=== PATIENT | male | born 1960 | race Caucasian/White ===

== ENCOUNTER 2021-01-28 15:00 | Inpatient (IN) | payer MEDICAID ==
[~2021-01-28] VITALS: Ht 188 cm; Wt 155.8 kg
[~2021-01-28 15:00] MED LIST: GLIP10TA9; PLAVIX; VICODIN; [UNRECOGNIZED DRUG - CODE]; [UNRECOGNIZED DRUG - CODE]
[2021-01-28] MEDS ORDERED: SODIUM CHLORIDE 0.9% 1,000 ML IVB ONE (16:00)
[2021-01-28 16:06] LABS: Urine Bacteria NONE SEEN /hpf (None Seen); Urine Blood Negative /uL (Negative); Urine Specific Gravity 1.019 (1.001-1.035); Urine WBC <1 /hpf (0 - 3)
[2021-01-28] MEDS ORDERED: ASPirin 81 mg TAB PO ONE (16:15)
[2021-01-28 16:22] LABS: Basophils # (auto) 0.1 10 ^3/uL (0-0.2); Eosinophils # (auto) 0 10 ^3/uL (0-0.8); Hemoglobin 10.2 g/dL (13.5-17.5); Monocytes # (auto) 0.6 10 ^3/uL (0-1.3)
[2021-01-28 16:23] LABS: Basophils % (auto) 0.8 % (0.0-2.0); Hematocrit 32.9 % (41.0-53.0); Lymphocytes # (auto) 0.8 10 ^3/uL (0.4-5.4); Lymphocytes % (auto) 7.3 % (10.0-50.0); Mean Corpuscular Hemoglobin 21.5 pg (28.0-32.0); Mean Corpuscular Hgb Conc. 30.9 g/dL (32.0-36.0); Mean Corpuscular Volume 69.4 fL (80.0-100.0); Monocytes % (auto) 5.4 % (0.0-12.0); Neutrophils # (auto) 10.1 10 ^3/uL (1.6-8.6); Neutrophils % (auto) 86.5 % (37.0-80.0); Platelet Count (auto) 430 10^3/uL (140-450); Red Blood Cells 4.74 10^6/uL (4.5-5.90); Red Cell Distribution Width 19.5 % (11.8-14.3); White Blood Cell 11.6 10^3/uL (4.4-10.8)
[2021-01-28] MEDS ORDERED: MORPHINE SULF INJ 2 MG/ML SYRINGE 1ML IV ONE (16:30)
[2021-01-28] MEDS ORDERED: ONDANSETRON HCL 4 MG/2 ML VIAL IV ONE (16:30)
[2021-01-28 16:36] LABS: Albumin 3.1 g/dL (3.4-5.0); Calcium 9.1 mg/dL (8.5-10.1); Magnesium 2.2 mg/dL (1.6-2.6); Potassium 4.6 mmol/L (3.5-5.1)
[2021-01-28 16:39] LABS: BUN/Creatinine Ratio 21.8; Bilirubin, Total 0.3 mg/dL (0.2-1.0); Total Protein 7.2 g/dL (6.4-8.2)
[2021-01-28 17:18] LABS: INR 1.08 (0.9-1.15)
[2021-01-28] MEDS ORDERED: InsuLIN REG 1unit/0.01ml Soln (100units/ml) SC ONE (17:30)
[2021-01-28] MEDS ORDERED: MORPHINE SULF INJ 2 MG/ML SYRINGE 1ML IV PRN (18:00)
[2021-01-28] MEDS ORDERED: ONDANSETRON HCL 4 MG/2 ML VIAL IV PRN (18:00)
[2021-01-28] MEDS ORDERED: ACETAMINOPHEN 325 MG TAB PO PRN (18:00)
[2021-01-28] MEDS ORDERED: DEXTROSE (50%) 50ML SYRG IV PRN (18:00)
[2021-01-28] MEDS ORDERED: NITROGLYCERIN 0.4 MG SL TAB SL PRN (18:00)
[2021-01-28 19:09] LABS: Alcohol, Urine < 3.0 mg/dL (0-10); Barbiturate Scree,Urine NEGATIVE (NEGATIVE); Benzodiazephine Screen, Urine NEGATIVE (NEGATIVE); Cannabinoid Screen, Urine POSITIVE (NEGATIVE); Cocaine Screen, Urine NEGATIVE (NEGATIVE); Opiate Scree,Urine NEGATIVE (NEGATIVE); Phencyclidine Screen, Urine NEGATIVE (NEGATIVE)
[2021-01-28 19:16] LABS: Amphetamine Screen, Urine NEGATIVE (NEGATIVE)
[2021-01-28 19:34] LABS: Cholesterol 136 mg/dL (< 200)
[2021-01-28] MEDS: ACCU-CHEK COMFORT CURVE STRIP VI SCH (19:35)
[2021-01-28 19:37] LABS: HDL Cholesterol 53 mg/dL (40-59); LDL Cholesterol 68 mg/dL (< 100); Triglycerides 96 mg/dL (< 150)
[2021-01-28] MEDS: InsuLIN REG 1unit/0.01ml Soln (100units/ml) SC SCH (20:02)
[2021-01-28] MEDS: HYDROcodone-ACET 5/325MG TAB PO PRN (21:52)
[2021-01-28 22:00] VITALS: BP 119/59
[2021-01-28] MEDS: ATORVASTATIN 20 MG TAB PO SCH (22:06)
[2021-01-28] MEDS: INSULIN LANTUS (GLARGINE) 1 /0.01ml (100units/ml) SC SCH (22:06)
[2021-01-28] MEDS ORDERED: TEMAZEPAM 15 MG CAP PO ONE (22:45)
[2021-01-28 23:03] VITALS: BP 119/59
[2021-01-28] MEDS ORDERED: ATOR10TA52 PO (23:54)
[2021-01-28] MEDS ORDERED: TAM04C PO (23:54)
[2021-01-28] MEDS ORDERED: ZOLP10TA6 PO (23:54)
[2021-01-28] MEDS ORDERED: APIX2.5T PO (23:54)
[2021-01-28] MEDS ORDERED: POTA10TA51 PO (23:54)
[2021-01-28] MEDS ORDERED: FURO20TA3 PO (23:54)
[2021-01-29] MEDS: ACCU-CHEK COMFORT CURVE STRIP VI SCH ×6 (00:02→20:57)
[2021-01-29] MEDS: InsuLIN REG 1unit/0.01ml Soln (100units/ml) SC SCH ×6 (00:04→20:59)
[2021-01-29 00:38] VITALS: BP 119/59
[2021-01-29] MEDS ORDERED: PNEUMOCOCCAL VACC POLYS 25 MCG/0.5 ML VIAL IM ONE (01:00)
[2021-01-29] MEDS: MORPHINE SULF INJ 2 MG/ML SYRINGE 1ML IV PRN ×3 (02:53→16:41)
[2021-01-29 05:00] VITALS: BP 123/60
[2021-01-29 08:20] LABS: Basophils # (auto) 0.2 10 ^3/uL (0-0.2); Eosinophils # (auto) 0.2 10 ^3/uL (0-0.8); Hemoglobin 10.2 g/dL (13.5-17.5); Lymphocytes # (auto) 3.5 10 ^3/uL (0.4-5.4); Mean Corpuscular Hgb Conc. 30.8 g/dL (32.0-36.0); Monocytes # (auto) 1.3 10 ^3/uL (0-1.3); Monocytes % (auto) 8.6 % (0.0-12.0)
[2021-01-29 08:22] LABS: Basophils % (auto) 1.1 % (0.0-2.0); Eosinophils % (auto) 1.2 % (0.0-7.0); Hematocrit 33.1 % (41.0-53.0); Lymphocytes % (auto) 24.1 % (10.0-50.0); Mean Corpuscular Hemoglobin 21.2 pg (28.0-32.0); Mean Corpuscular Volume 68.7 fL (80.0-100.0); Neutrophils # (auto) 9.6 10 ^3/uL (1.6-8.6); Nucleated Red Blood Cells % 0.1 %; Platelet Count (auto) 434 10^3/uL (140-450); Red Blood Cells 4.82 10^6/uL (4.5-5.90); Red Cell Distribution Width 19.9 % (11.8-14.3); White Blood Cell 14.7 10^3/uL (4.4-10.8)
[2021-01-29 08:24] VITALS: BP 134/74
[2021-01-29 08:39] LABS: Calcium 8.8 mg/dL (8.5-10.1)
[2021-01-29] MEDS: ADENOSINE 135 MG in GIVE UN-DILUTED 0 ML IV STA (08:41)
[2021-01-29] MEDS ORDERED: ENOXAPARIN SOD 40 MG/0.4 ML SYRINGE SC SCH (10:00)
[2021-01-29] MEDS ORDERED: ASPirin 81 mg TAB PO SCH (10:00)
[2021-01-29] MEDS: levoFLOXacin 500MG 100 ML IV SCH (10:44)
[2021-01-29] MEDS: FAMOTIDINE 20 MG TAB PO SCH (10:44)
[2021-01-29] MEDS: INSULIN LANTUS (GLARGINE) 1 /0.01ml (100units/ml) SC SCH ×2 (10:44→20:58)
[2021-01-29 12:16] VITALS: BP 132/66
[2021-01-29 13:00] LABS: BUN/Creatinine Ratio 26.5
[2021-01-29] MEDS: HYDROcodone-ACET 5/325MG TAB PO PRN ×2 (14:24→20:56)
[2021-01-29 16:38] VITALS: BP 129/67
[2021-01-29] MEDS: ATORVASTATIN 20 MG TAB PO SCH (20:57)
[2021-01-29 22:00] VITALS: BP 137/64
[2021-01-29] MEDS ORDERED: APIXABAN 5 MG TAB PO SCH (22:00)
[2021-01-29] MEDS ORDERED: ZOLPIDEM TARTRATE 5 MG TAB PO PRN (22:15)
[2021-01-29] MEDS: ZOLPIDEM TARTRATE 5 MG TAB PO PRN (22:51)
[2021-01-30] MEDS: MORPHINE SULF INJ 2 MG/ML SYRINGE 1ML IV PRN ×3 (00:06→20:00)
[2021-01-30] MEDS: ACCU-CHEK COMFORT CURVE STRIP VI SCH ×7 (00:15→23:39)
[2021-01-30] MEDS: InsuLIN REG 1unit/0.01ml Soln (100units/ml) SC SCH ×7 (00:17→23:38)
[2021-01-30 05:00] VITALS: BP 133/67
[2021-01-30 07:23] LABS: Basophils # (auto) 0.1 10 ^3/uL (0-0.2); Basophils % (auto) 0.7 % (0.0-2.0); Eosinophils # (auto) 0.2 10 ^3/uL (0-0.8); Eosinophils % (auto) 1.8 % (0.0-7.0); Hematocrit 34.3 % (41.0-53.0); Hemoglobin 10.6 g/dL (13.5-17.5); Lymphocytes # (auto) 2.4 10 ^3/uL (0.4-5.4); Lymphocytes % (auto) 23.7 % (10.0-50.0); Mean Corpuscular Hemoglobin 21.4 pg (28.0-32.0); Mean Corpuscular Hgb Conc. 30.9 g/dL (32.0-36.0); Mean Corpuscular Volume 69.2 fL (80.0-100.0); Monocytes # (auto) 0.9 10 ^3/uL (0-1.3); Monocytes % (auto) 9.5 % (0.0-12.0); Neutrophils # (auto) 6.4 10 ^3/uL (1.6-8.6); Neutrophils % (auto) 64.3 % (37.0-80.0); Nucleated Red Blood Cells % 0.2 %; Platelet Count (auto) 434 10^3/uL (140-450); Red Blood Cells 4.96 10^6/uL (4.5-5.90); Red Cell Distribution Width 19.6 % (11.8-14.3)
[2021-01-30 08:33] VITALS: BP 132/67
[2021-01-30] MEDS: ADENOSINE 135 MG in GIVE UN-DILUTED 0 ML IV STA (08:37)
[2021-01-30] MEDS: levoFLOXacin 500MG 100 ML IV SCH (10:39)
[2021-01-30] MEDS: TAMSULOSIN HYDROCHLORIDE 0.4 MG CAP PO SCH (10:39)
[2021-01-30] MEDS: FAMOTIDINE 20 MG TAB PO SCH (10:40)
[2021-01-30] MEDS: FUROSEMIDE 40 MG TAB PO SCH (10:40)
[2021-01-30] MEDS: LISINOPRIL 5 MG TAB PO SCH (10:40)
[2021-01-30] MEDS: INSULIN LANTUS (GLARGINE) 1 /0.01ml (100units/ml) SC SCH ×2 (10:41→21:55)
[2021-01-30 12:30] LABS: Albumin 3.4 g/dL (3.4-5.0); Calcium 9.4 mg/dL (8.5-10.1); INR 1.09 (0.9-1.15); Partial Thromboplastin Time 25.1 sec (23.0-31.2); Potassium 4.1 mmol/L (3.5-5.1)
[2021-01-30 12:33] LABS: BUN/Creatinine Ratio 20.2; Bilirubin, Total 0.4 mg/dL (0.2-1.0); Total Protein 7.2 g/dL (6.4-8.2)
[2021-01-30 13:00] VITALS: BP 126/65
[2021-01-30] MEDS ORDERED: LIDOCAINE 2%HCL (LOCAL ANESTH.) INJ 20ML MDV ONE (14:31)
[2021-01-30] MEDS ORDERED: ANGIOMAX 250 MG VIAL IV ONE (14:41)
[2021-01-30] MEDS ORDERED: MIDAZOLAM HCL 1MG/1ML-2 ML VIAL ONE ×2 (14:41→15:21)
[2021-01-30] MEDS ORDERED: fentaNYL CITRATE 100 MCG/2 ML VL ONE (14:41)
[2021-01-30] MEDS ORDERED: SODIUM CHL 0.9% 0 ML ONE (14:41)
[2021-01-30] MEDS ORDERED: diphenhdrAMINE HCL 50 MG/1 ML VL ONE (15:21)
[2021-01-30] MEDS ORDERED: IODIXANOL 320MG/ML 100ML BTL IV ONE (15:24)
[2021-01-30 17:00] VITALS: BP 120/57
[2021-01-30] MEDS: HYDROcodone-ACET 5/325MG TAB PO PRN (21:53)
[2021-01-30] MEDS: ATORVASTATIN 20 MG TAB PO SCH (21:53)
[2021-01-30] MEDS: ZOLPIDEM TARTRATE 5 MG TAB PO PRN (21:54)
[2021-01-30 22:00] VITALS: BP 136/76
[2021-01-31] MEDS: MORPHINE SULF INJ 2 MG/ML SYRINGE 1ML IV PRN ×2 (02:10→08:19)
[2021-01-31] MEDS: ACCU-CHEK COMFORT CURVE STRIP VI SCH ×3 (03:36→11:48)
[2021-01-31] MEDS: InsuLIN REG 1unit/0.01ml Soln (100units/ml) SC SCH ×3 (03:39→11:47)
[2021-01-31] MEDS: HYDROcodone-ACET 5/325MG TAB PO PRN ×2 (03:53→11:46)
[2021-01-31 05:30] VITALS: BP 145/68
[2021-01-31] MEDS: INSULIN LANTUS (GLARGINE) 1 /0.01ml (100units/ml) SC SCH (08:59)
[2021-01-31 09:00] VITALS: BP 149/78
[2021-01-31] MEDS: levoFLOXacin 500MG 100 ML IV SCH (09:00)
[2021-01-31] MEDS: FUROSEMIDE 40 MG TAB PO SCH (09:00)
[2021-01-31] MEDS: TAMSULOSIN HYDROCHLORIDE 0.4 MG CAP PO SCH (09:00)
[2021-01-31] MEDS: FAMOTIDINE 20 MG TAB PO SCH (09:00)
[2021-01-31] MEDS: LISINOPRIL 5 MG TAB PO SCH (09:01)
[2021-01-31] MEDS ORDERED: APIXABAN 5 MG TAB PO SCH (10:00)
[2021-01-31] MEDS ORDERED: ZOLP10TA6 PO (12:39)
[2021-01-31] MEDS ORDERED: PANT40TA2 PO (12:39)
== END 2021-01-31 13:25 | disposition home or self-care (01) | DRG 191 ==
LOC: EDBD 15:00 → ER 15:00 → TELE 18:00 → TELE-CENTR 20:18
PROVIDERS: ADMIT Nurse Practitioner Acute Care; ATTEND Hospitalist
PROC: 4A023N7 Measurement of Cardiac Sampling and Pressure, Left Heart, Percutaneous Approach (ICD-10-PCS; principal; 2021-01-30)
PROC: B2111ZZ Fluoroscopy of Multiple Coronary Arteries using Low Osmolar Contrast (ICD-10-PCS; 2021-01-30)
PROC: B2131ZZ Fluoroscopy of Multiple Coronary Artery Bypass Grafts using Low Osmolar Contrast (ICD-10-PCS; 2021-01-30)
PROC: B2151ZZ Fluoroscopy of Left Heart using Low Osmolar Contrast (ICD-10-PCS; 2021-01-30)
DX: I25.110 Atherosclerotic heart disease of native coronary artery with unstable angina pectoris (principal); I50.33 Acute on chronic diastolic (congestive) heart failure; E10.65 Type 1 diabetes mellitus with hyperglycemia; Z68.41 Body mass index [BMI] 40.0-44.9, adult; I11.0 Hypertensive heart disease with heart failure; G47.33 Obstructive sleep apnea (adult) (pediatric); D72.829 Elevated white blood cell count, unspecified; E66.9 Obesity, unspecified; E78.5 Hyperlipidemia, unspecified; I48.0 Paroxysmal atrial fibrillation; F12.90 Cannabis use, unspecified, uncomplicated; J45.909 Unspecified asthma, uncomplicated; Z79.01 Long term (current) use of anticoagulants; Z79.4 Long term (current) use of insulin; N40.0 Benign prostatic hyperplasia without lower urinary tract symptoms; Z80.1 Family history of malignant neoplasm of trachea, bronchus and lung; Z81.3 Family history of other psychoactive substance abuse and dependence; Z82.49 Family history of ischemic heart disease and other diseases of the circulatory system; Z83.3 Family history of diabetes mellitus; Z91.14 Patient's other noncompliance with medication regimen; Z95.1 Presence of aortocoronary bypass graft; F17.210 Nicotine dependence, cigarettes, uncomplicated; Z88.0 Allergy status to penicillin; Z20.822 Contact with and (suspected) exposure to COVID-19
CPT/HCPCS: 36415; 71045; 78452; 80048; 80053; 80061; 80307; 81001; 82962; 83036; 83690; 83735; 83880; 84484; 85025; 85610; 85730; 86850; 86900; 86901; 87040; 87081; 87426; 93005; 93017; 93306; 93459; 96372; 96374; 96375; 99152; 99153; G0378; J0153; J1815; J1956; J2250; J2405; Q9967

== ENCOUNTER 2021-02-22 22:27 | Inpatient (IN) | payer MEDICAID ==
[~2021-02-22] VITALS: Ht 188 cm; Wt 136.0 kg
[~2021-02-22 22:27] MED LIST changes: +APIX2.5T PO; +ATOR10TA52 PO; +FURO20TA3 PO; +PANT40TA2 PO; +POTA10TA51 PO; +TAM04C PO
[2021-02-22 23:23] LABS: Basophils # (auto) 0.1 10 ^3/uL (0-0.2); Basophils % (auto) 0.6 % (0.0-2.0); Eosinophils # (auto) 0.1 10 ^3/uL (0-0.8); Eosinophils % (auto) 1.3 % (0.0-7.0); Hematocrit 32.7 % (41.0-53.0); Hemoglobin 10.2 g/dL (13.5-17.5); Lymphocytes # (auto) 2.1 10 ^3/uL (0.4-5.4); Lymphocytes % (auto) 18.6 % (10.0-50.0); Mean Corpuscular Hemoglobin 21.5 pg (28.0-32.0); Mean Corpuscular Hgb Conc. 31.3 g/dL (32.0-36.0); Mean Corpuscular Volume 68.6 fL (80.0-100.0); Monocytes # (auto) 0.9 10 ^3/uL (0-1.3); Monocytes % (auto) 8.2 % (0.0-12.0); Neutrophils # (auto) 8.1 10 ^3/uL (1.6-8.6); Neutrophils % (auto) 71.3 % (37.0-80.0); Nucleated Red Blood Cells % 0.2 %; Platelet Count (auto) 311 10^3/uL (140-450); Red Blood Cells 4.76 10^6/uL (4.5-5.90); White Blood Cell 11.3 10^3/uL (4.4-10.8)
[2021-02-22 23:25] LABS: Red Cell Distribution Width 20.1 % (11.8-14.3)
[2021-02-22 23:37] LABS: Albumin 3.1 g/dL (3.4-5.0); Anion Gap 10 (5-15); Blood Urea Nitrogen 13 mg/dL (7-18); Calcium 8.4 mg/dL (8.5-10.1); Carbon Dioxide 25 mmol/L (21-32); Chloride 98 mmol/L (98-107); GFR African American 81 mL/min; GFR Non-African American 67 mL/min; Potassium 4.1 mmol/L (3.5-5.1); Sodium 133 mmol/L (136-145)
[2021-02-22 23:40] LABS: Glucose 458 mg/dL (74-106)
[2021-02-22 23:47] LABS: Alanine Aminotransferase 18 U/L (16-61); Alkaline Phosphatase 91 U/L (45-117); Aspartate Aminotransferase 7 U/L (15-37); Bilirubin, Total 0.2 mg/dL (0.2-1.0)
[2021-02-22 23:54] LABS: INR 1.03 (0.9-1.15); Partial Thromboplastin Time 25.1 sec (23.0-31.2)
[2021-02-23] MEDS ORDERED: InsuLIN REG 1unit/0.01ml Soln (100units/ml) IV ONE
[2021-02-23] MEDS ORDERED: ONDANSETRON HCL 4 MG/2 ML VIAL IV ONE (00:45)
[2021-02-23] MEDS ORDERED: MORPHINE SULFATE 4 MG/ML SYR/VIAL IV ONE (00:45)
[2021-02-23] MEDS ORDERED: DEXTROSE (50%) 50ML SYRG IV PRN (05:30)
[2021-02-23] MEDS ORDERED: ACETAMINOPHEN 500 MG TAB PO PRN (05:30)
[2021-02-23] MEDS ORDERED: MORPHINE SULF INJ 2 MG/ML SYRINGE 1ML IV PRN ×10 (05:30)
[2021-02-23] MEDS ORDERED: NITROGLYCERIN 0.4 MG SL TAB SL PRN (05:30)
[2021-02-23] MEDS ORDERED: HYDROcodone-ACET 5/325MG TAB PO PRN ×5 (05:30)
[2021-02-23] MEDS ORDERED: ONDANSETRON HCL 4 MG/2 ML VIAL IV PRN (05:30)
[2021-02-23] MEDS: ACCU-CHEK COMFORT CURVE STRIP VI SCH ×3 (06:48→17:00)
[2021-02-23] MEDS: InsuLIN REG 1unit/0.01ml Soln (100units/ml) SC SCH ×3 (06:50→17:00)
[2021-02-23] MEDS ORDERED: FUROSEMIDE 20 MG TAB PO SCH (10:00)
[2021-02-23] MEDS ORDERED: CLOPIDOGREL BISULFATE 75 MG TAB PO SCH (10:00)
[2021-02-23] MEDS ORDERED: PATIENTS OWN MEDICATION (Atorvastatin Calcium 1 TAB) PO SCH ×4 (10:00)
[2021-02-23] MEDS ORDERED: PANTOPRAZOLE 40 MG TAB PO SCH (10:00)
[2021-02-23] MEDS ORDERED: TAMSULOSIN HYDROCHLORIDE 0.4 MG CAP PO SCH (10:00)
[2021-02-23] MEDS ORDERED: APIXABAN 5 MG TAB PO SCH (10:00)
[2021-02-23 10:17] VITALS: BP 114/56
[2021-02-23] MEDS ORDERED: MORPHINE SULFATE 4 MG/ML SYR/VIAL ONE (10:42)
[2021-02-23] MEDS ORDERED: BUMETANIDE 2.5mg/10ml (0.25 mg/ml) INJ IV ONE (11:15)
[2021-02-23] MEDS ORDERED: HYDROcodone-ACET 10/325MG TAB PO ONE (11:30)
[2021-02-23 15:59] VITALS: BP 114/56
[2021-02-23 17:00] VITALS: BP 137/67
[2021-02-23] MEDS ORDERED: ATORVASTATIN 20 MG TAB PO SCH (18:00)
== END 2021-02-23 18:20 | disposition home or self-care (01) | DRG 194 ==
LOC: EDBD 22:27 → ER 22:30 → TELE 02-23 05:17 → TELE-CENTR 02-23 08:43
PROVIDERS: ADMIT Nurse Practitioner Acute Care; ATTEND Hospitalist
DX: I11.0 Hypertensive heart disease with heart failure (principal); E11.51 Type 2 diabetes mellitus with diabetic peripheral angiopathy without gangrene; E11.65 Type 2 diabetes mellitus with hyperglycemia; Z79.01 Long term (current) use of anticoagulants; D50.9 Iron deficiency anemia, unspecified; E66.9 Obesity, unspecified; F17.210 Nicotine dependence, cigarettes, uncomplicated; I50.9 Heart failure, unspecified; E78.5 Hyperlipidemia, unspecified; I25.10 Atherosclerotic heart disease of native coronary artery without angina pectoris; J45.909 Unspecified asthma, uncomplicated; G47.33 Obstructive sleep apnea (adult) (pediatric); Z68.38 Body mass index [BMI] 38.0-38.9, adult; Z20.822 Contact with and (suspected) exposure to COVID-19; Z88.0 Allergy status to penicillin; Z79.899 Other long term (current) drug therapy; Z79.4 Long term (current) use of insulin; Z80.1 Family history of malignant neoplasm of trachea, bronchus and lung; Z81.3 Family history of other psychoactive substance abuse and dependence; Z82.49 Family history of ischemic heart disease and other diseases of the circulatory system; Z83.3 Family history of diabetes mellitus; Z91.19 Patient's noncompliance with other medical treatment and regimen; Z95.1 Presence of aortocoronary bypass graft; Z98.61 Coronary angioplasty status
CPT/HCPCS: 36415; 71045; 80053; 82550; 82962; 83880; 84484; 85025; 85610; 85730; 87081; 87426; 93005; 93925; 93970; 96374; 96375; 96376; G0378; J1815; J2405

== ENCOUNTER 2021-03-09 18:44 | Inpatient (IN) | payer MEDICAID ==
[~2021-03-09] VITALS: Ht 188 cm; Wt 160.5 kg
[2021-03-09] MEDS ORDERED: MORPHINE SULFATE 4 MG/ML SYR/VIAL IV ONE (19:00)
[2021-03-09] MEDS ORDERED: ONDANSETRON HCL 4 MG/2 ML VIAL IV ONE (19:00)
[2021-03-09 19:27] LABS: Basophils # (auto) 0.1 10 ^3/uL (0-0.2); Hemoglobin 9.5 g/dL (13.5-17.5); Mean Corpuscular Volume 66.6 fL (80.0-100.0); Neutrophils # (auto) 6.1 10 ^3/uL (1.6-8.6); Nucleated Red Blood Cells % 0.5 %
[2021-03-09 19:29] LABS: Eosinophils # (auto) 0.1 10 ^3/uL (0-0.8); Eosinophils % (auto) 1.4 % (0.0-7.0); Hematocrit 29.8 % (41.0-53.0); Lymphocytes # (auto) 2.4 10 ^3/uL (0.4-5.4); Lymphocytes % (auto) 24.4 % (10.0-50.0); Mean Corpuscular Hemoglobin 21.2 pg (28.0-32.0); Mean Corpuscular Hgb Conc. 31.9 g/dL (32.0-36.0); Monocytes # (auto) 1.2 10 ^3/uL (0-1.3); Monocytes % (auto) 11.6 % (0.0-12.0); Neutrophils % (auto) 61.6 % (37.0-80.0); Platelet Count (auto) 349 10^3/uL (140-450); Red Blood Cells 4.47 10^6/uL (4.5-5.90); Red Cell Distribution Width 19.8 % (11.8-14.3); White Blood Cell 9.9 10^3/uL (4.4-10.8)
[2021-03-09 19:43] LABS: Anion Gap 4 (5-15); Blood Urea Nitrogen 10 mg/dL (7-18); Calcium 8.7 mg/dL (8.5-10.1); Carbon Dioxide 27 mmol/L (21-32); Chloride 105 mmol/L (98-107); Glucose 142 mg/dL (74-106); Magnesium 1.7 mg/dL (1.6-2.6); Potassium 3.9 mmol/L (3.5-5.1); Sodium 136 mmol/L (136-145)
[2021-03-09 19:45] LABS: Alanine Aminotransferase 39 U/L (16-61); Aspartate Aminotransferase 17 U/L (15-37); GFR African American 115 mL/min; GFR Non-African American 95 mL/min
[2021-03-09 19:50] LABS: Alkaline Phosphatase 88 U/L (45-117); Bilirubin, Total 0.4 mg/dL (0.2-1.0); Total Protein 6.7 g/dL (6.4-8.2)
[2021-03-09 20:25] LABS: BUN/Creatinine Ratio 11.5
[2021-03-09] MEDS ORDERED: ONDANSETRON HCL 4 MG/2 ML VIAL IV PRN (21:30)
[2021-03-09] MEDS ORDERED: TEMAZEPAM 15 MG CAP PO PRN (21:30)
[2021-03-09] MEDS ORDERED: ACETAMINOPHEN 325 MG TAB PO PRN (21:30)
[2021-03-09] MEDS ORDERED: NITROGLYCERIN 0.4 MG SL TAB SL PRN (21:30)
[2021-03-09] MEDS ORDERED: DEXTROSE (50%) 50ML SYRG IV PRN (21:30)
[2021-03-09] MEDS ORDERED: TAMS0.4C36 PO (21:49)
[2021-03-09] MEDS ORDERED: ATOR40TA52 PO (21:49)
[2021-03-09] MEDS ORDERED: GLIP5TAB12 PO (21:49)
[2021-03-09] MEDS ORDERED: PIOG1TAB51 PO (21:49)
[2021-03-09] MEDS ORDERED: METF-371 PO (21:49)
[2021-03-09] MEDS ORDERED: AMIO200T4 PO (21:49)
[2021-03-09] MEDS ORDERED: ISOS20TA5 PO (21:49)
[2021-03-09] MEDS ORDERED: APIX5TAB PO (21:49)
[2021-03-09] MEDS ORDERED: TRAZ50TA2 PO (21:49)
[2021-03-09] MEDS ORDERED: ATORVASTATIN 20 MG TAB PO SCH (22:00)
[2021-03-09] MEDS ORDERED: INSU1INJ19 SC (22:02)
[2021-03-09] MEDS ORDERED: ZOLP5TAB5 PO (22:02)
[2021-03-09] MEDS ORDERED: FURO40TA4 PO (22:03)
[2021-03-09] MEDS ORDERED: MET25T PO (22:03)
[2021-03-09] MEDS ORDERED: PANT40T PO (22:03)
[2021-03-09] MEDS ORDERED: ENAL10TA13 PO (22:03)
[2021-03-09] MEDS ORDERED: GABA800T97 PO (22:03)
[2021-03-09] MEDS ORDERED: RANO500T3 PO (22:03)
[2021-03-09] MEDS: ACCU-CHEK COMFORT CURVE STRIP VI SCH (22:30)
[2021-03-09] MEDS: InsuLIN REG 1unit/0.01ml Soln (100units/ml) SC SCH (22:33)
[2021-03-09] MEDS: FAMOTIDINE 20 MG TAB PO SCH (22:34)
[2021-03-09] MEDS: APIXABAN 2.5 MG TAB PO SCH (22:36)
[2021-03-09] MEDS ORDERED: IOHEXOL 350 MG/ML 100ML IJ ONE (23:13)
[2021-03-10] VITALS: BP 128/65
[2021-03-10] MEDS: MORPHINE SULF INJ 2 MG/ML SYRINGE 1ML IV PRN ×3 (00:47→11:32)
[2021-03-10 05:00] VITALS: BP 168/97
[2021-03-10] MEDS ORDERED: ALBUTEROL SULF 2.5 MG/0.5ML(0.5%) NEB SOLN NEB PRN (05:45)
[2021-03-10] MEDS ORDERED: ALBUTEROL SULF 2.5 MG/0.5ML(0.5%) NEB SOLN ONE (06:04)
[2021-03-10] MEDS: ACCU-CHEK COMFORT CURVE STRIP VI SCH ×2 (06:32→11:32)
[2021-03-10 06:35] LABS: Basophils # (auto) 0.1 10 ^3/uL (0-0.2); Eosinophils # (auto) 0.2 10 ^3/uL (0-0.8); Eosinophils % (auto) 1.8 % (0.0-7.0); White Blood Cell 9.3 10^3/uL (4.4-10.8)
[2021-03-10] MEDS: InsuLIN REG 1unit/0.01ml Soln (100units/ml) SC SCH ×2 (06:35→11:39)
[2021-03-10 06:37] LABS: Basophils % (auto) 1.1 % (0.0-2.0); Hemoglobin 10.3 g/dL (13.5-17.5); Lymphocytes # (auto) 1.6 10 ^3/uL (0.4-5.4); Lymphocytes % (auto) 16.6 % (10.0-50.0); Mean Corpuscular Hemoglobin 21.6 pg (28.0-32.0); Mean Corpuscular Hgb Conc. 32.1 g/dL (32.0-36.0); Mean Corpuscular Volume 67.1 fL (80.0-100.0); Monocytes # (auto) 0.8 10 ^3/uL (0-1.3); Neutrophils # (auto) 6.7 10 ^3/uL (1.6-8.6); Neutrophils % (auto) 71.5 % (37.0-80.0); Nucleated Red Blood Cells % 0.3 %; Platelet Count (auto) 324 10^3/uL (140-450); Red Blood Cells 4.77 10^6/uL (4.5-5.90); Red Cell Distribution Width 19.9 % (11.8-14.3)
[2021-03-10 06:50] LABS: Albumin 3.1 g/dL (3.4-5.0); Anion Gap 7 (5-15); Blood Urea Nitrogen 12 mg/dL (7-18); Calcium 8.6 mg/dL (8.5-10.1); Carbon Dioxide 25 mmol/L (21-32); Chloride 103 mmol/L (98-107); Glucose 339 mg/dL (74-106); Potassium 4.7 mmol/L (3.5-5.1); Sodium 135 mmol/L (136-145)
[2021-03-10 06:57] LABS: Alanine Aminotransferase 42 U/L (16-61); Alkaline Phosphatase 97 U/L (45-117); Aspartate Aminotransferase 25 U/L (15-37); BUN/Creatinine Ratio 11.9; Bilirubin, Total 0.5 mg/dL (0.2-1.0); GFR African American 97 mL/min; GFR Non-African American 80 mL/min; Total Protein 7.1 g/dL (6.4-8.2)
[2021-03-10 09:00] VITALS: BP 138/74
[2021-03-10] MEDS ORDERED: ASPirin 81 mg TAB PO SCH (10:00)
[2021-03-10] MEDS ORDERED: FUROSEMIDE 40 MG TAB PO SCH (10:00)
[2021-03-10] MEDS ORDERED: METOPROLOL SUCCINATE XL 50 MG TAB PO SCH (10:00)
[2021-03-10] MEDS ORDERED: CLOPIDOGREL BISULFATE 75 MG TAB PO SCH (10:00)
[2021-03-10] MEDS: APIXABAN 2.5 MG TAB PO SCH (10:40)
[2021-03-10] MEDS: FAMOTIDINE 20 MG TAB PO SCH (10:41)
[2021-03-10 13:00] VITALS: BP 159/72
[2021-03-10] MEDS ORDERED: ASPI1TAB91 PO (13:01)
[2021-03-10] MEDS ORDERED: methylPREDNISolone SOD SUCC 125 MG/2 ML VL IV ONE (14:15)
[2021-03-10] MEDS ORDERED: ALBU0.084 IN (14:16)
[2021-03-10] MEDS ORDERED: PRED20TA2 PO (14:16)
[2021-03-10] MEDS ORDERED: MORPHINE SULF INJ 2 MG/ML SYRINGE 1ML IV ONE (16:00)
[2021-03-10 16:55] VITALS: BP 166/77
[2021-03-10] MEDS ORDERED: TAMSULOSIN HYDROCHLORIDE 0.4 MG CAP PO SCH (18:00)
== END 2021-03-10 17:45 | disposition home or self-care (01) | DRG 140 ==
LOC: EDBD 18:44 → ER 18:44 → TELE 21:24 → TELE-WESTW 23:23
PROVIDERS: ADMIT Nurse Practitioner; ATTEND Internal Medicine
DX: J44.1 Chronic obstructive pulmonary disease with (acute) exacerbation (principal); E11.22 Type 2 diabetes mellitus with diabetic chronic kidney disease; E11.40 Type 2 diabetes mellitus with diabetic neuropathy, unspecified; E44.0 Moderate protein-calorie malnutrition; I25.110 Atherosclerotic heart disease of native coronary artery with unstable angina pectoris; Z68.42 Body mass index [BMI] 45.0-49.9, adult; I13.0 Hypertensive heart and chronic kidney disease with heart failure and stage 1 through stage 4 chronic kidney disease, or unspecified chronic kidney disease; I50.30 Unspecified diastolic (congestive) heart failure; I48.0 Paroxysmal atrial fibrillation; Z20.822 Contact with and (suspected) exposure to COVID-19; N40.0 Benign prostatic hyperplasia without lower urinary tract symptoms; K21.9 Gastro-esophageal reflux disease without esophagitis; E78.5 Hyperlipidemia, unspecified; F17.210 Nicotine dependence, cigarettes, uncomplicated; E66.9 Obesity, unspecified; F12.90 Cannabis use, unspecified, uncomplicated; N18.9 Chronic kidney disease, unspecified; Z88.0 Allergy status to penicillin; Z88.8 Allergy status to other drugs, medicaments and biological substances; Z95.1 Presence of aortocoronary bypass graft; Z90.89 Acquired absence of other organs; Z80.1 Family history of malignant neoplasm of trachea, bronchus and lung; Z82.49 Family history of ischemic heart disease and other diseases of the circulatory system; Z91.19 Patient's noncompliance with other medical treatment and regimen; Z81.3 Family history of other psychoactive substance abuse and dependence; Z79.82 Long term (current) use of aspirin
CPT/HCPCS: 36415; 71045; 71275; 80053; 82962; 83735; 83880; 84484; 85025; 85379; 87081; 87426; 93005; 94640; 96374; 96375; 99291; G0378; J1815; J2405

== ENCOUNTER 2021-05-14 21:15 | Emergency (ER) | payer MEDICAID ==
[~2021-05-14] VITALS: Ht 185.4 cm; Wt 136.1 kg
[~2021-05-14 21:15] MED LIST changes: +ALBU0.084 IN; +AMIO200T4 PO; -APIX2.5T PO; +APIX5TAB PO; +ASPI1TAB91 PO; +ATOR40TA52 PO; +ENAL10TA13 PO; -FURO20TA3 PO; +FURO40TA4 PO; +GABA800T97 PO; -GLIP10TA9; +GLIP5TAB12 PO; +INSU1INJ19 SC; +ISOS20TA5 PO; +MET25T PO; +METF-371 PO; +PIOG1TAB51 PO; -PLAVIX; +PRED20TA2 PO; +RANO500T3 PO; +TRAZ50TA2 PO; +ZOLP5TAB5 PO; -[UNRECOGNIZED DRUG - CODE]
[2021-05-14 22:38] LABS: Basophils # (auto) 0.2 10 ^3/uL (0-0.2); Eosinophils # (auto) 0.1 10 ^3/uL (0-0.8); Mean Corpuscular Hemoglobin 22.5 pg (28.0-32.0); Monocytes # (auto) 1.1 10 ^3/uL (0-1.3); Monocytes % (auto) 7.7 % (0.0-12.0)
[2021-05-14 22:41] LABS: Basophils % (auto) 1.2 % (0.0-2.0); Eosinophils % (auto) 0.7 % (0.0-7.0); Hematocrit 37.5 % (41.0-53.0); Hemoglobin 12.4 g/dL (13.5-17.5); Lymphocytes # (auto) 2.5 10 ^3/uL (0.4-5.4); Lymphocytes % (auto) 18.2 % (10.0-50.0); Mean Corpuscular Volume 68.1 fL (80.0-100.0); Neutrophils # (auto) 9.9 10 ^3/uL (1.6-8.6); Neutrophils % (auto) 72.2 % (37.0-80.0); Red Blood Cells 5.51 10^6/uL (4.5-5.90); White Blood Cell 13.7 10^3/uL (4.4-10.8)
[2021-05-14 22:46] LABS: Red Cell Distribution Width 26.7 % (11.8-14.3)
[2021-05-14 22:56] LABS: Chloride 82 mmol/L (98-107)
[2021-05-14 23:05] LABS: Alanine Aminotransferase 31 U/L (16-61); Albumin 3.1 g/dL (3.4-5.0); Alkaline Phosphatase 85 U/L (45-117); Aspartate Aminotransferase 17 U/L (15-37); BUN/Creatinine Ratio 27.4; Bilirubin, Total 0.5 mg/dL (0.2-1.0); Blood Urea Nitrogen 34 mg/dL (7-18); Calcium 9.1 mg/dL (8.5-10.1); Carbon Dioxide 31 mmol/L (21-32); GFR African American 76 mL/min; GFR Non-African American 63 mL/min; Glucose 314 mg/dL (74-106); Total Protein 7.5 g/dL (6.4-8.2)
[2021-05-14 23:11] LABS: Potassium 2.7 mmol/L (3.5-5.1)
[2021-05-14] MEDS ORDERED: fentaNYL CITRATE 100 MCG/2 ML VL IV ONE (23:15)
[2021-05-14 23:38] LABS: Anion Gap 12 (5-15); Sodium 125 mmol/L (136-145)
[2021-05-15] MEDS: POTASSIUM CHL 20MEQ/100ML 100 ML IV SCH ×2 (02:37→03:46)
[2021-05-15 05:01] VITALS: BP 125/59
[2021-05-15] MEDS ORDERED: POTASSIUM CHL 20 Meq TABLET PO ONE (06:00)
[2021-05-15] MEDS ORDERED: FAMOTIDINE 20 MG TAB PO ONE (06:00)
== END 2021-05-15 06:23 | disposition home or self-care (01) ==
LOC: EDBD 21:15 → ER 21:15
DX: E87.6 Hypokalemia (principal); R10.13 Epigastric pain; R07.9 Chest pain, unspecified; I11.0 Hypertensive heart disease with heart failure; I50.9 Heart failure, unspecified; I25.10 Atherosclerotic heart disease of native coronary artery without angina pectoris; E78.5 Hyperlipidemia, unspecified; E11.9 Type 2 diabetes mellitus without complications; F17.210 Nicotine dependence, cigarettes, uncomplicated; Z95.1 Presence of aortocoronary bypass graft; Z90.89 Acquired absence of other organs; Z79.899 Other long term (current) drug therapy; Z79.82 Long term (current) use of aspirin; Z88.0 Allergy status to penicillin; Z88.8 Allergy status to other drugs, medicaments and biological substances
CPT/HCPCS: 36415; 71045; 80053; 84484; 85025; 93005; 96365; 96366; 96375; 99285; J3010; J3480; 96374